=== PATIENT | female | born 1940 | race Caucasian/White ===

== ENCOUNTER → 2016-07-15 | Outpatient (CLI) | payer MEDICARE, OTHER ==
[~2016-07-15] MED LIST: BUSPAR15 M1 PO; BUSPAR15 M2; FOLIC ACID1 MG PO; LIBRIUM PO; LOPRESSOR PO; MED FOR BLADDER; METOPROLOL TAR25 MG PO; REMERON15 MG PO; THYROID MED; TOLTERODINE TART4 MG PO
[2016-07-15 11:49] LABS: HEMATOCRIT 37.3 % (35.0-45.0); HEMOGLOBIN 12.5 gm/dL (12.0-16.0); MEAN CELL VOLUME 96.3 FL (83-96); MEAN CORPUSCULAR HEMOGLOBIN 32.2 PG (28-34); MEAN CORPUSCULAR HGB CONC 33.4 g/dL (30-36); MEAN PLATELET VOLUME 7.8 FL (6.5-11.5); RED BLOOD COUNT 3.87 X10e (3.90-5.30); RED CELL DISTRIBUTION WIDTH 12.9 % (11.0-15.5)
== END | disposition home or self-care (01) ==
LOC: SLAB 11:40
PROVIDERS: Internal Medicine
DX: D64.9 Anemia, unspecified (principal)
CPT/HCPCS: 36415; 85027